=== PATIENT | female | born 1990 | race Caucasian/White ===

== ENCOUNTER 2019-07-18 11:27 | Outpatient (CLI) | payer SELFPAY | END 2019-07-18 23:59 | disposition home or self-care (01) | LOC: RAD 11:27 | PROVIDERS: ATTEND Obstetrics & Gynecology Reproductive Endocrinology | DX: O09.811 Supervision of pregnancy resulting from assisted reproductive technology, first trimester (principal); O26.841 Uterine size-date discrepancy, first trimester; Z3A.01 Less than 8 weeks gestation of pregnancy | CPT/HCPCS: 76801 ==